=== PATIENT | female | born 1975 | race Caucasian/White ===

== ENCOUNTER 2017-02-04 11:29 | Emergency (ER) | payer OTHER ==
[~2017-02-04] VITALS: Ht 162.6 cm; Wt 78.2 kg
[2017-02-04] MEDS ORDERED: LORTAB 5-325 M1 EACH PO (15:37)
[2017-02-04] MEDS ORDERED: NAPROSYN500 MG PO (15:37)
[2017-02-04] MEDS ORDERED: FLEXERIL10 MG PO (15:37)
[2017-02-04 15:43] VITALS: BP 135/79
== END 2017-02-04 15:48 | disposition home or self-care (01) ==
LOC: EME 11:29
DX: S16.1XXA Strain of muscle, fascia and tendon at neck level, initial encounter (principal); M54.5 Low back pain; R51 Headache; Y92.410 Unspecified street and highway as the place of occurrence of the external cause; V49.40XA Driver injured in collision with unspecified motor vehicles in traffic accident, initial encounter
CPT/HCPCS: 99281; 99284; J3010